=== PATIENT | male | born 1970 | race Caucasian/White ===

== ENCOUNTER 2016-12-19 08:24 | Emergency (ER) | payer OTHER ==
[~2016-12-19] VITALS: Ht 177.8 cm; Wt 88.0 kg
[~2016-12-19 08:24] MED LIST: NO MEDS
[2016-12-19 08:25] VITALS: Ht 177.8 cm; Wt 88.0 kg
[2016-12-19] MEDS ORDERED: MECLIZINE 12.5 MG TAB PO ONE (09:00)
[2016-12-19 10:31] LABS: BASOPHIL # 0.1 10^3/ul (0.0-0.1); BASOPHILS % 0.8 % (0.0-2.0); EOSINOPHILS # 0.3 10^3/ul (0.0-0.5); EOSINOPHILS % 4.1 % (0.0-7.0); HEMATOCRIT 45.7 % (42.0-52.0); HEMOGLOBIN 14.7 g/dl (14.0-18.0); LYMPHOCYTES # 1.8 10^3/ul (0.8-2.9); LYMPHOCYTES % 28.6 % (15.0-51.0); MEAN CORPUSCULAR HEMOGLOBIN 28.7 pg (29.0-33.0); MEAN CORPUSCULAR HGB CONC 32.2 g/dl (32.0-37.0); MEAN CORPUSCULAR VOLUME 89.3 fl (82.0-101.0); MEAN PLATELET VOLUME 8.7 fl (7.4-10.4); MONOCYTE # 0.4 10^3/ul (0.3-0.9); MONOCYTES % 6.2 % (0.0-11.0); NEUTROPHIL # 3.7 10^3/ul (1.6-7.5); PLATELET COUNT 285 10^3/UL (140-415); RED BLOOD COUNT 5.12 10^6/ul (4.70-6.10); WHITE BLOOD COUNT 6.1 10^3/ul (4.8-10.8)
[2016-12-19 10:46] LABS: CREATININE 0.91 mg/dl (0.61-1.24); POTASSIUM 4.3 mmol/L (3.5-5.1)
[2016-12-19] MEDS ORDERED: MECL12.574 PO (11:12)
[2016-12-19] MEDS ORDERED: ACET500C5 PO (11:13)
--- NOTE | 2016-12-19 16:16 | ERD ---
ER Documentation Chief Complaint Date/Time DATE: 12/19/16 TIME: 16:11 Chief Complaint feverish and feels dizzy HPI Patient is a 46-year-old male with no past medical history presents to the emergency department for concerns of "feeling feverish" and dizzy. The symptoms started 9 days ago. Patient states he "has a heavy head". Patient reports worsening dizziness with positional changes. Patient states he has dizziness with head movement. Patient reports room spinning sensation. Dizziness is episodic and last less than 1-2 minutes. Patient denies any neck pain, neck stiffness, blurry vision, double vision, tinnitus, dysarthria, nausea , vomiting, chest pain, shortness breath, upper extremity pain or diaphoresis. Denies any recent URI symptoms. Patient denies any unilateral weakness, slurred speech or facial droop. ROS All systems reviewed and are negative except as per history of present illness. Medications Home Meds Active Scripts Acetaminophen* (Tylophen*) 500 Mg Capsule, 1 CAP PO Q6H Y for PAIN AND OR ELEVATED TEMP, #20 CAP Prov:KRISTEN GONZALES PA-C 12/19/16 Meclizine Hcl* (Antivert*) 12.5 Mg Tab, 12.5 MG PO Q6H Y for DIZZINESS, #20 TAB Prov:KRISTEN GONZALES PA-C 12/19/16 Reported Medications [No Meds] No Conflict Check 12/27/12 Allergies Allergies: Coded Allergies: No Known Allergy (Unverified , 12/27/12) PMhx/Soc History of Surgery: No Anesthesia Reaction: No Hx Neurological Disorder: No Hx Respiratory Disorders: No Hx Cardiac Disorders: No Hx Psychiatric Problems: No Hx Miscellaneous Medical Probl: No Hx Alcohol Use: Yes (socially) Hx Substance Use: No Hx Tobacco Use: No Smoking Status: Never smoker Physical Exam Vitals Vital Signs Date Time Temp Pulse Resp B/P Pulse Ox O2 Delivery O2 Flow Rate FiO2 12/19/16 08:25 98.6 90 18 133/74 100 Physical Exam GENERAL: Well-developed, well-nourished male. Appears in no acute distress. Speaking in full sentences. HEAD: Normocephalic, atraumatic. No deformities or ecchymosis. EYE: Pupils equal, round, and reactive to light. EOMs intact. No conjunctival erythema. No eye discharge. ENT: External ear without any masses or tenderness. TM visualized bilaterally, non-erythematous, non-bulging. Nasal mucosa pink with no discharge. Oropharynx is pink without any tonsillar erythema or exudates. No uvula deviation. No kissing tonsils. NECK: Supple. No meningismus. Normal ROM of the neck. LUNG: Clear to auscultation bilaterally. No rhonchi, wheezing, rales or coarse breath sounds. HEART: Regular rate and rhythm. No murmurs, rubs or gallops. BACK: No midline tenderness. EXTREMITIES: Equal pulses bilaterally. No peripheral clubbing, cyanosis or edema. No unilateral leg swelling. NEUROLOGIC: Alert and oriented x3, cooperative. Mood and affect appropriate to situation. Cranial nerves II through XII are grossly intact. Normal speech. Motor exam: 5/5 strength in upper and lower extremities. Sensory exam: Sensation intact to light touch on all four extremities. Cerebellar function exam: No dysmetria on [id number]-[id number] test. Steady gait. No pronator drift. No facial droop. SKIN: Normal color. Warm and dry. No rashes or lesions. Result Diagram: 12/19/1690612/19/16906 Results 24 hrs Laboratory Tests Test 12/19/16 09:07 White Blood Count 6.110^3/ul Red Blood Count 5.1210^6/ul Hemoglobin 14.7g/dl Hematocrit 45.7% Mean Corpuscular Volume 89.3fl Mean Corpuscular Hemoglobin 28.7pg Mean Corpuscular Hemoglobin Concent 32.2g/dl Red Cell Distribution Width 12.0% Platelet Count 60354^3/UL Mean Platelet Volume 8.7fl Neutrophils % 60.0% Lymphocytes % 28.6% Monocytes % 6.2% Eosinophils % 4.1% Basophils % 0.8% Nucleated Red Blood Cells % 0.0/100WBC Neutrophils # 3.710^3/ul Lymphocytes # 1.810^3/ul Monocytes # 0.410^3/ul Eosinophils # 0.310^3/ul Basophils # 0.110^3/ul Nucleated Red Blood Cells # 0.010^3/ul Sodium Level 142mmol/L Potassium Level 4.3mmol/L Chloride Level 104mmol/L Carbon Dioxide Level 29mmol/L Anion Gap 13 Blood Urea Nitrogen 7mg/dl Creatinine 0.91mg/dl Glucose Level 83mg/dl Calcium Level 9.0mg/dl Current Medications Medications (Trade) Dose Ordered Sig/Mahin Route PRN Reason Start Time Stop Time Status Last Admin Dose Admin Meclizine HCl (Antivert) 25 mg ONCE ONCE PO 12/19/16 09:00 10 09:01 DC 12/19/16 09:12 Procedures/MDM ED COURSE: The patient was stable throughout ED course. I kept the patient and/or family informed of laboratory and diagnostic imaging results throughout the ED course. EKG: Read by Dr. Lomeli, attending physician. EKG shows normal sinus rhythm at a rate of 71 bpm. No arrhythmias, acute ST elevations or T wave changes were noted. PROCEDURES: None. MEDICATIONS GIVEN: Meclizine Patient tolerated medication well with no adverse reactions. Patient reported improvement in pain. MEDICAL DECISION MAKING: This is a 46 year old male who presents with "head heaviness" and dizziness x 9 days. Vital signs were reviewed. Patient was afebrile. Patient was not hypoxic. Patient described the dizziness to resemble room spinning sensation. Episodes are intermittent lasting less than 1-2 minutes. The dizziness is worse with head movement, minimal at rest. The patient denied any recent URIs. The patient denied hearing loss, diplopia, dusphagia, dysarthria. Full neuro exam was normal. EKG was within normal limits. Patient did improvement significant improvement after taking Meclizine. Given these findings, the patient's presentation is most consistent with benign paroxysmal positional vertigo. I have a much lower clinical concern for intracranial hemorrhage, cerebral infarct, intracranial mass, multiple sclerosis , labyrinthitis, vestibular neuritis, Menieres disease, ear foreign body, otitis media, ACS, electrolyte abnormality. PRESCRIPTIONS: Meclizine Zofran DISCHARGE: At this time, patient is stable for discharge and outpatient management. Patient was given a copy of all imaging studies obtained today. I have instructed the patient to follow-up with his/her primary care physician in 1-2 days. If symptoms persist, patient may need to see a ENT specialist for further management. I have instructed the patient to promptly return to the ER at any time for any new or worsening symptoms including increased increased pain, fever , nausea, vomiting, numbness, weakness, slurred speech, LOC. The patient and/or family expressed understanding of and agreement with this plan. All questions were answered. Home care instructions were provided. Disclaimer: Inadvertent spelling and grammatical errors are likely due to EHR/ dictation software use and do not reflect on the overall quality of patient care. Also, please note that the electronic time recorded on this note does not necessarily reflect the actual time of the patient encounter. Departure Diagnosis: Primary Impression: Vertigo Condition: Stable Patient Instructions: Inner Ear Problems: Causes of Dizziness (Vertigo) Referrals: CHON ROMEO MD, SHERRI VARGAS,JASMEET WIN,DEVIN VALENTIN,JONATHAN ANGEL,CIERA BELTRÁN,DARRIUS FORMAN,DAPHNEY Hinojosa MD [facility] YOU HAVE RECEIVED A MEDICAL SCREENING EXAM AND THE RESULTS INDICATE THAT YOU DO NOT HAVE A CONDITION THAT REQUIRES URGENT TREATMENT IN THE EMERGENCY DEPARTMENT. FURTHER EVALUATION AND TREATMENT OF YOUR CONDITION CAN WAIT UNTIL YOU ARE SEEN IN YOUR DOCTORS OFFICE WITHIN THE NEXT 1-2 DAYS. IT IS YOUR RESPONSIBILITY TO MAKE AN APPOINTMENT FOR FOLOW-UP CARE. IF YOU HAVE A PRIMARY DOCTOR --you should call your primary doctor and schedule an appointment IF YOU DO NOT HAVE A PRIMARY DOCTOR YOU CAN CALL OUR PHYSICIAN REFERRAL HOTLINE AT IF YOU CAN NOT AFFORD TO SEE A PHYSICIAN YOU CAN CHOSE FROM THE FOLLOWING [facility] [address] [facility]. [facility] [address] [facility]. [facility] [address] [facility] [address] [facility] [address] [facility]. [facility]. [address] [facility]. [facility] YOU HAVE RECEIVED A MEDICAL SCREENING EXAM AND THE RESULTS INDICATE THAT YOU DO NOT HAVE A CONDITION THAT REQUIRES URGENT TREATMENT IN THE EMERGENCY DEPARTMENT. FURTHER EVALUATION AND TREATMENT OF YOUR CONDITION CAN WAIT UNTIL YOU ARE SEEN IN YOUR DOCTORS OFFICE WITHIN THE NEXT 1-2 DAYS. IT IS YOUR RESPONSIBILITY TO MAKE AN APPOINTMENT FOR FOLOW-UP CARE. IF YOU HAVE A PRIMARY DOCTOR --you should call your primary doctor and schedule and appointment IF YOU DO NOT HAVE A PRIMARY DOCTOR YOU CAN CALL OUR PHYSICIAN REFERRAL HOTLINE AT . IF YOU CAN NOT AFFORD TO SEE A PHYSICIAN YOU CAN CHOSE FROM THE FOLLOWING [facility] INSTITUTIONS: [facility] [address] [place] [address] [facility] [address] [place] [address] [facility] [address] [place] [address] Additional Instructions: Call your primary care doctor TOMORROW for an appointment during the next 1-2 days.See the doctor sooner or return here if your condition worsens before your appointment time. You may need to follow-up with an ENT specialist for further management of your vertigo. KRISTEN GONZALES PA-C Dec 19, 2016 16:16
== END 2016-12-19 11:25 | disposition home or self-care (01) ==
LOC: FTE 08:24
DX: R42 Dizziness and giddiness (principal)
CPT/HCPCS: 80048; 85025; 93005; Z7502; Z7610